=== PATIENT | male | born 1960 | race Caucasian/White ===

== ENCOUNTER 2022-12-19 08:42 | Day surgery (SDC) | payer BC ==
[2022-12-14 16:58] VITALS: BMI 30.1
[2022-12-19] MEDS ORDERED: ONDANSETRON 4 MG/2 ML VIAL IVPUSH PRN (08:44)
[2022-12-19] MEDS ORDERED: oxyCODONE HCL 5 MG TABLET PO PRN ×2 (08:44→12:17)
[2022-12-19] MEDS ORDERED: LACTATED RINGERS SOLUTION 1,000 ML IV SCH (08:45)
[2022-12-19] MEDS ORDERED: BUPIVACAINE HCL/PF 0.5% (5 MG/ML) 30 ML VIAL IJ ONE (09:45)
[2022-12-19] MEDS ORDERED: DEXAMETHASONE SOD PHOSPHATE/PF 10 MG/ML SDV ONE (09:45)
[2022-12-19] MEDS ORDERED: MIDAZOLAM HCL 2 MG/2 ML SINGLE DOSE VIAL ONE ×2 (09:45→11:37)
[2022-12-19] MEDS ORDERED: PROPOFOL 20 ML ONE ×2 (10:45→11:21)
[2022-12-19] MEDS ORDERED: LIDOCAINE HCL/PF 2% SDV 5ML VIAL ONE (10:51)
[2022-12-19] MEDS ORDERED: ONDANSETRON 4 MG/2 ML VIAL ONE (10:52)
[2022-12-19] MEDS ORDERED: ceFAZolin SODIUM 1 GM VIAL ONE (10:52)
[2022-12-19] MEDS ORDERED: DEXAMETHASONE SOD PHOSPHATE 4 MG/1 ML VIAL ONE (10:52)
[2022-12-19] MEDS ORDERED: TRANEXAMIC ACID 1000 MG/10 ML VIAL ONE (11:36)
[2022-12-19 12:45] VITALS: PULSE 75
[2022-12-19 13:31] VITALS: RESP 18; TEMP 96.6
[2022-12-19 14:22] VITALS: BP 140/87
== END 2022-12-19 14:00 | disposition home or self-care (01) ==
LOC: FASU 08:42
PROVIDERS: ATTEND Orthopaedic Surgery
PROC: 0PB90ZZ Excision of Right Clavicle, Open Approach (ICD-10-PCS; 2022-12-19)
PROC: 0RBJ0ZZ Excision of Right Shoulder Joint, Open Approach (ICD-10-PCS; principal; 2022-12-19 11:10)
DX: M67.411 Ganglion, right shoulder (principal); M19.011 Primary osteoarthritis, right shoulder
CPT/HCPCS: 88304-TC; 88311-TC; 94760